=== PATIENT | female | born 1955 | race African-American/Black ===

== ENCOUNTER 2017-12-21 09:08 | Emergency (ER) | payer SELFPAY ==
[~2017-12-21] VITALS: Ht 175.3 cm; Wt 94.5 kg
[~2017-12-21 09:08] MED LIST: DILT60 PO; HYDR25TA PO; NAPR-58 PO
[2017-12-21] MEDS ORDERED: VALS1TAB81 PO (09:41)
[2017-12-21] MEDS ORDERED: ASPI-989 PO (09:42)
[2017-12-21] MEDS ORDERED: OXYC20 PO (09:42)
[2017-12-21 13:25] VITALS: BP 108/59
== END 2017-12-21 13:41 | disposition home or self-care (01) ==
LOC: EMS 09:13
DX: M54.2 Cervicalgia (principal); R51 Headache; G89.29 Other chronic pain; I10 Essential (primary) hypertension; Z87.891 Personal history of nicotine dependence; V43.52XA Car driver injured in collision with other type car in traffic accident, initial encounter; Y93.89 Activity, other specified; Y92.89 Other specified places as the place of occurrence of the external cause; Y99.8 Other external cause status
CPT/HCPCS: 70450; 72125; 99284